=== PATIENT | male | born 1990 | race Hispanic/Latino ===

== ENCOUNTER 2017-08-06 12:33 | Emergency (ER) | payer BC, SELFPAY ==
--- NOTE | 2017-08-06 13:52 | RAD ---
LEFT SHOULDER THREE VIEWS: History: Pain. Comparison: None. FINDINGS: No acute displaced fracture or malalignment. Soft tissues are unremarkable. IMPRESSION: No acute displaced fracture or malalignment. POS: [facility]
[2017-08-06] MEDS ORDERED: Ibuprofen 800 MG TAB ONE (14:07)
== END 2017-08-06 15:07 | disposition home or self-care (01) ==
LOC: ERS 12:33
DX: S46.912A Strain of unspecified muscle, fascia and tendon at shoulder and upper arm level, left arm, initial encounter (principal); X50.1XXA Overexertion from prolonged static or awkward postures, initial encounter

== ENCOUNTER 2017-09-02 18:05 | Emergency (ER) | payer BC ==
[2017-09-02] MEDS ORDERED: Ketorolac Tromethamine 30 MG/ML VIAL ONE (19:39)
== END 2017-09-02 20:04 | disposition home or self-care (01) ==
LOC: ERS 18:05
DX: S46.912A Strain of unspecified muscle, fascia and tendon at shoulder and upper arm level, left arm, initial encounter (principal); X50.0XXA Overexertion from strenuous movement or load, initial encounter
CPT/HCPCS: 96372; J1885

== ENCOUNTER 2017-10-16 12:34 | Emergency (ER) | payer BC, SELFPAY ==
[2017-10-16 13:28] LABS: #Eosinphils 0.1 thou/uL (0.0-0.7); #Monocytes 0.3 thou/uL (0.11-0.59); #Neutrophils 4.5 thou/uL (1.40-6.50); %Basophils 0.3 % (0.0-1.0); %Eosinophils 1.7 % (0.0-10.0); %Monocytes 4.7 % (0.0-10.0); %Neutrophils 64.3 % (42.0-75.0); Hemoglobin 15.1 g/dL (14.0-18.0); Mean Corpuscular HGB CONC 35.8 g/dL (32.0-36.0); Mean Corpuscular Volume 86.5 fL (78.0-98.0); Platelet Count 184 thou/uL (130-400); RBC Distribution Width 12.3 % (11.5-14.5); Red Blood Cell (RBC) Count 4.88 mill/uL (4.70-6.10)
[2017-10-16] MEDS ORDERED: Lidocaine Viscous Sol 2% 15 ml UD Cup ONE (13:40)
[2017-10-16] MEDS ORDERED: Mag-Al 1200 mg/1200 mg/30 ML UDCUP ONE (13:40)
[2017-10-16 13:49] LABS: ALT (SGPT) 38 U/L (8-55); AST (SGOT) 23 U/L (5-34); Albumin 4.1 g/dL (3.5-5.0); Alkaline Phosphatase 69 U/L (40-150); Anion Gap 11 mmol/L (10-20); BUN (Urea Nitrogen) 13 mg/dL (8.9-20.6); Bilirubin, Total 0.6 mg/dL (0.2-1.2); Calc. Creatinine Clearance 0 mL/min (70-130); Calcium 9.2 mg/dL (7.8-10.44); Carbon Dioxide 21 mmol/L (22-29); Chloride 108 mmol/L (98-107); Estimated GFR-MDRD Greater than 90; Globulin 3.5 g/dL (2.4-3.5); Glucose 94 mg/dL (70-105); Potassium 4.2 mmol/L (3.5-5.1); Protein, Total 7.6 g/dL (6.0-8.3); Sodium 136 mmol/L (136-145)
--- NOTE | 2017-10-16 14:35 | RAD ---
PA AND LATERAL CHEST: Date: 10/16/17 HISTORY: Cough. Vomiting. Spit up blood. COMPARISON: 04/26/11. FINDINGS: Cardiac silhouette and pulmonary vasculature are within normal limits. The lungs remain clear. There has been no interval change when compared to the prior exam. IMPRESSION: No acute cardiopulmonary process. POS: [facility]
== END 2017-10-16 15:18 | disposition home or self-care (01) ==
LOC: ERS 12:34
DX: B34.9 Viral infection, unspecified (principal)
CPT/HCPCS: 36415; 71046; 80053; 85025; 85379

== ENCOUNTER 2018-04-10 07:39 | Emergency (ER) | payer SELFPAY | END 2018-04-10 08:33 | disposition home or self-care (01) | LOC: ERS 07:39 | DX: J06.9 Acute upper respiratory infection, unspecified (principal) | CPT/HCPCS: 99283 ==

== ENCOUNTER 2018-12-05 22:16 | Emergency (ER) | payer SELFPAY ==
--- NOTE | 2018-12-05 22:44 | RAD ---
EXAM: Chest 2 views: HISTORY: Cough and flulike symptoms COMPARISON: 10/16/2017 FINDINGS: There is a normal-sized cardiomediastinal silhouette. There is no evidence of consolidation, mass, or pleural effusion. The bones are unremarkable. IMPRESSION: No evidence of acute cardiopulmonary disease
== END 2018-12-05 23:08 | disposition home or self-care (01) ==
LOC: ERS 22:16
DX: J30.2 Other seasonal allergic rhinitis (principal); R05 Cough
CPT/HCPCS: 71046

== ENCOUNTER 2019-02-13 20:35 | Emergency (ER) | payer SELFPAY ==
[2019-02-13] MEDS ORDERED: Acetaminophen 500 MG TAB ONE (21:30)
== END 2019-02-13 21:36 | disposition left against medical advice (07) ==
LOC: ERS 20:35
DX: Z53.21 Procedure and treatment not carried out due to patient leaving prior to being seen by health care provider (principal)
CPT/HCPCS: 87804

== ENCOUNTER 2019-10-16 12:33 | Emergency (ER) | payer OTHER ==
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
== END 2019-10-16 13:30 | disposition home or self-care (01) ==
LOC: ERS 12:33
DX: S93.504A Unspecified sprain of right lesser toe(s), initial encounter (principal); W23.0XXA Caught, crushed, jammed, or pinched between moving objects, initial encounter

== ENCOUNTER 2020-01-20 19:27 | Emergency (ER) | payer OTHER, SELFPAY ==
[2020-01-21 02:59] LABS: SARS-CoV-2 MS2 Positive; SARS-CoV-2 N Gene Positive; SARS-CoV-2 S Gene Positive; SARS-CoV-2 by NAA DETECTED (NotDetected); SARS-CoV-2 orf1ab Positive
== END 2020-01-20 19:54 | disposition home or self-care (01) ==
LOC: ERS 19:27
DX: U07.1 COVID-19 (principal)
CPT/HCPCS: 87635; 99283; U0003

== ENCOUNTER 2020-06-26 00:37 | Emergency (ER) | payer OTHER, SELFPAY ==
[2020-06-26] MEDS ORDERED: Ondansetron PF 4 MG/2 ML Vial ONE (00:52)
[2020-06-26 01:09] LABS: #Monocytes 0.5 thou/uL (0.11-0.59); #Neutrophils 5.1 thou/uL (1.40-6.50); %Basophils 0.1 % (0.0-1.0); %Eosinophils 0.6 % (0.0-10.0); %Lymphocytes 15.2 % (21.0-51.0); %Monocytes 6.8 % (0.0-10.0); %Neutrophils 77.3 % (42.0-75.0); Hemoglobin 15.5 g/dL (14.0-18.0); Mean Corpuscular HGB CONC 33.6 g/dL (32.0-36.0); Mean Corpuscular Hemoglobin 29.9 pg (27.0-31.0); Mean Corpuscular Volume 88.8 fL (78.0-98.0); Mean Platelet Volume 8.3 fL (7.4-10.4); Platelet Count 150 thou/uL (130-400); RBC Distribution Width 12.2 % (11.5-14.5); White Blood Cell (WBC) Count 6.6 thou/uL (4.8-10.8)
[2020-06-26 01:31] LABS: ALT (SGPT) 25 U/L (8-55); AST (SGOT) 16 U/L (5-34); Albumin 3.9 g/dL (3.5-5.0); Alkaline Phosphatase 67 U/L (40-110); Anion Gap 13 mmol/L (10-20); BUN (Urea Nitrogen) 16 mg/dL (8.9-20.6); Bilirubin, Total 1.4 mg/dL (0.2-1.2); Calc. Creatinine Clearance 0 mL/min (70-130); Calcium 8.6 mg/dL (7.8-10.44); Carbon Dioxide 26 mmol/L (22-29); Chloride 103 mmol/L (98-107); Globulin 3.4 g/dL (2.4-3.5); Glucose 107 mg/dL (70-105); Lipase 21 U/L (8-78); Potassium 3.6 mmol/L (3.5-5.1); Protein, Total 7.3 g/dL (6.0-8.3); Sodium 138 mmol/L (136-145)
[2020-06-26] MEDS ORDERED: Mag-Al 1200 mg/1200 mg/30 ML UDCUP ONE (01:49)
[2020-06-26] MEDS ORDERED: Lidocaine Viscous Sol 2% 15 ml UD Cup ONE (01:49)
== END 2020-06-26 02:05 | disposition home or self-care (01) ==
LOC: ERS 00:37
DX: R10.13 Epigastric pain (principal); R11.2 Nausea with vomiting, unspecified
CPT/HCPCS: 80053; 83690; 85025; 96374; J2405

== ENCOUNTER 2020-12-11 05:18 | Emergency (ER) | payer SELFPAY | END 2020-12-11 05:51 | disposition home or self-care (01) | LOC: ERS 05:18 | DX: L03.116 Cellulitis of left lower limb (principal) | CPT/HCPCS: 99283 ==

== ENCOUNTER 2020-12-31 21:12 | Emergency (ER) | payer SELFPAY | END 2020-12-31 22:17 | disposition home or self-care (01) | LOC: ERS 21:12 | DX: L50.0 Allergic urticaria (principal) | CPT/HCPCS: 99283 ==